=== PATIENT | female | born 1955 | race Caucasian/White ===

== ENCOUNTER 2017-06-24 10:06 | Outpatient (CLI) | payer OTHER | END 2017-06-24 10:07 | disposition home or self-care (01) | LOC: SC 10:06 | PROVIDERS: ATTEND Nurse Practitioner Family | DX: G47.33 Obstructive sleep apnea (adult) (pediatric) (principal) | CPT/HCPCS: 99212; 99214 ==

== ENCOUNTER 2019-09-27 15:57 | Outpatient (CLI) | payer OTHER ==
[2019-09-27 16:49] VITALS: BP 106/74
--- NOTE | 2019-09-27 16:49 | SLEEP CARE CONSULTATION ---
Information from patient questionnaire entered by Gia Dawson. I have reviewed and concur with the information entered by Gia Dawson. This document represents the service I personally performed and the decisions made by me, Mahogany Joyce, RN, MSN, HEMOTHERAPIST. History of Present Illness Previous diagnosis: Mild, Obstructive Sleep Apnea-Hypopnea Syndrome AHI: 7.4 Reason for follow up: annual (last seen 2017) Equipment type: CPAP Equipment obtained from: [facility] (having difficulty getting supplies and would like to transfer to [place]) Mask style: Nasal (Wisp but increase of rosea where it sits and affects hair style.) Mask brand: Respironics Backup mask available: No Last cushion change: 6 weeks ago CPAP Compliance Data - Data Reviewed with Patient Average duration of nightly device use: 6.2 Compliance rate %: 84.4 Current pressure setting (cmH2O): 5 Humidity settin Heated hose settin Average residual AHI: 1.2 Average large leak: 20 sec Subjective Missed days of use due to: reports: illness Patient concerns: reports: mask discomfort (rosea ), air blowing in eyes (vent air ), condensation in mask/hose (rare), dry mouth, nose, throat (rare when out of water), other (chronic sinus congestion - saw ENT 2 years for same symptom ). denies: mask leak noise, nasal congestion, epistaxis Observed to snore while using device: No Current pressure setting perceived as: comfortable On therapy, patient: reports: sleeping better, awakening more refreshed, being more awake and alert during the day, more rested overall. denies: drowsiness while driving Initial [place] Sleepiness Scale score: 11 Current [place] Sleepiness Scale score: 7 Allergies and Home Medications Known drug allergies: Yes (niacin) Home medication list reviewed: Yes Allergy and home medication list: ramipril 10mg daily levothyroxine 25mcg daily hydrochlorthiazide 25mg daily omeprazole 20mg daily Co Q10 daily magnesium 500mg daily calcium daily glucosamine daily metronidozole cream topically daily tumeric daily vitamin 2000 units daily vitamin 1000mg daily B12 daily ascorbic palmetate daily estrogen cream vaginally Review of Systems Review of systems same as previous: No (Shingles a year ago) Physical Exam Blood Pressure: 106/74 Cuff size: long Heart Rate: 96 O2 Saturation: 79 Height: 5 ft 6.5 in Weight: 190 lb Body Mass Index: 30.2 BMI Classification: Obesity Class 1 Impression and Plan 1. Obstructive Sleep Apnea-Hypopnea Syndrome, mild, with good treatment compliance and good apnea control. On CPAP therapy, the patient has better sleep quality and is more rested overall. For supply concerns she would like to transfer to [place]. I will have ultrasound coordinator check if insurance coverage at that [facility]. I will need to make DWO prescription. She would also like to tray a new mask style that works better with her hair. I showed her some mask styles. She would like to try the Dream wisp nasal mask. I will add the new mask style as shown to see if better for hair style and the vent is on top of head so will also reduce leaks into eyes. In addition, I gave her Pad A cheek pamphlet for cloth barriers that can be used to see if will reduce roscea irritation at mask site on face. Since she would like to lose 30 pounds, I showed her how her current weight places her as class 1 obesity. Weight loss will reduce her BMI to 26 over weight. I encouraged her to lose weight for overall health. In addition, I explained how significant weight loss could reduce her CPAP pressure requirements so I will adjust her 4-5 cmH20. Symptoms to report for further pressure adjustment discussed. If dryness symptoms become more frequent, she can adjust her humidity higher. Patient's apnea severity and rationale for treatment to reduce apnea, improve sleep quality and reduce cardiovascular and cerebrovascular events was reviewed. I also reviewed the benefit of consistent device use of CPAP for hypertension. since apnea more severe supine, she is advised to avoid supine sleep if unable to use CPAP. * Change auto CPAP pressure to 4- 5 cmH2O * Transfer to new [facility] * New mask fitting to try Dreamwisp * consider Pad a Cheek barriers * Notify me if snoring with mask or feeling that the pressure is too much or too little * Attempt to lose weight for over all health * Return for follow up in 1 year , or sooner if concerns arise I spent 100% of this 35 minute visit face to face with the patient with greater than 50% of this was spent time counseling the patient and coordination of care.
== END 2019-09-27 15:58 | disposition home or self-care (01) ==
LOC: SC 15:57
PROVIDERS: ATTEND Nurse Practitioner Family
DX: G47.33 Obstructive sleep apnea (adult) (pediatric) (principal); E66.9 Obesity, unspecified; Z68.30 Body mass index [BMI] 30.0-30.9, adult
CPT/HCPCS: 99212; 99214

== ENCOUNTER 2020-04-24 09:19 | Outpatient (CLI) | payer MEDICARE, BC ==
[2020-04-24 09:35] VITALS: BP 140/80
--- NOTE | 2020-04-24 09:35 | SLEEP CARE CONSULTATION ---
Information from patient questionnaire entered by Gia Dawson. I have reviewed and concur with the information entered by Gia Dawson. This document represents the service I personally performed and the decisions made by me, Mahogany Joyce, RN, MSN, [employer]. History of Present Illness Service Date and Time: 04/24/2020918 Previous diagnosis: Mild, Obstructive Sleep Apnea-Hypopnea Syndrome AHI: 7.4 (in 2014) Reason for follow up: other (7 month) Equipment type: CPAP Equipment obtained from: [employer] (in [place] / no supplies since transition to new Medicare insurance) Mask style: Nasal (Dreamwear) Backup mask available: Yes (old mask ) Last cushion change: about 3 months ago Prior sleep studies: Yes Year and Where: 2014 - [facility] Type of Sleep Study: Polysomnography CPAP Compliance Data - Data Reviewed with Patient Average duration of nightly device use: 6.75 Compliance rate %: 93.3 (180 days) Current pressure setting (cmH2O): 5 Humidity settin Heated hose setting: no heated hose given Average residual AHI: 1.5 Average large leak: 2 min 59 sec Subjective Patient concerns: reports: aerophagia (burping in the morning and occasional abdominal distention ), nasal congestion (pulls off mask in later morning a couple times a month due to nasal congestion. Uses Flonase if increased symptoms. ), dry mouth, nose, throat (mild dry mouth), other (mask dislodges about 1-2 times a week even after pulling hair through). denies: mask discomfort, air blowing in eyes, mask leak noise, condensation in mask/hose, epistaxis Observed to snore while using device: No Current pressure setting perceived as: comfortable On therapy, patient: reports: sleeping better, awakening more refreshed, being more awake and alert during the day, more rested overall, drowsiness while driving Initial [place] Sleepiness Scale score: 11 (in 2014) Allergies and Home Medications Home medication list reviewed: No (no changes ) Review of Systems Review of systems same as previous: Yes Physical Exam Blood Pressure: 140/80 Cuff size: long Heart Rate: 73 O2 Saturation: 98 Height: 5 ft 6.5 in Weight: 193 lb 12.8 oz (stable ) Body Mass Index: 30.8 BMI Classification: Obese Impression and Plan 1. Obstructive Sleep Apnea-Hypopnea Syndrome, mild, with good treatment compliance and good apnea control. On CPAP therapy, the patient has better sleep quality and is more rested overall. For aerophagina - I will lower CPAP pressure to 4cmH20. Patient to contact me if this is not resolved. I will also order a heated hose. Her heated hose was not replaced by new DME and she gets condensation in hose without heat in cooler weather. Nasal congestion can be reduced with increasing the CPAP humidity. The heated hose can be adjusted higher if condensation with higher humidity setting. Saline nasal spray can be also used prior to CPAP to clear nasal secretions and wash off any nasal allergens to facilitate nasal breathing. In addition, a steamy shower before bed will often assist nasal drainage. Her device is over 5 years old and is starting to turn off by itself while patient is using. In addition, it is hard to see humidity settings. Thus I will update CPAP device. Process discussed. She is advised it is her choice whether she wants a Respironics or ResMed device. To prevent mask dislodging during sleep, I will order the new headgear adaptor for Dreamwear nasal mask. Patient's apnea severity and rationale for treatment to reduce apnea, improve sleep quality and reduce cardiovascular and cerebrovascular events was reviewed. * * Changeauto CPAP pressure to 4 cmH2O * Update CPAP - patient choice * head gearadaptor * Notify me if snoring with mask or feeling that the pressure is too much or too little * Attempt to lose weight * consider diet consultation * Call this office if any problems using CPAP * Return for follow up in after new device , or sooner if concerns arise Time Spent with Patient (minutes): 30
== END 2020-04-24 09:20 | disposition home or self-care (01) ==
LOC: SC 09:19
PROVIDERS: ATTEND Nurse Practitioner Family
DX: G47.33 Obstructive sleep apnea (adult) (pediatric) (principal); E66.9 Obesity, unspecified; Z68.30 Body mass index [BMI] 30.0-30.9, adult
CPT/HCPCS: 99214; G0463; 99212

== ENCOUNTER 2021-07-26 08:06 | Outpatient (CLI) | payer MEDICARE, BC ==
--- NOTE | 2021-07-26 08:36 | SLEEP CARE CONSULTATION ---
Information from patient questionnaire entered by Gia Dawson. I have reviewed and concur with the information entered by Gia Dawson. This document represents the service I personally performed and the decisions made by , Yuni Donnelly ARNP. History of Present Illness Service Date and Time: 07/26/2021 0806 Previous diagnosis: Mild, Obstructive Sleep Apnea-Hypopnea Syndrome AHI: 7.4 (in 2014) Reason for follow up: annual (last seen 06/2020) Equipment type: CPAP Equipment obtained from: [facility] (getting supplies as needed) Mask style: Nasal Backup mask available: Yes (old mask) Last cushion change: 1-2 weeks ago Prior sleep studies: Yes Year and Where: 2014 - [facility] Type of Sleep Study: Polysomnography HPI additional information: MARITZA SMITH was diagnosed to have mild, AHI 7.4, obstructive sleep apnea-hypopnea syndrome and returned today for CPAP therapy annual follow-up. CPAP Compliance Data - Data Reviewed with Patient Average duration of nightly device use: 6 hr 53 min Compliance rate %: 87.2 (180 days) Current pressure setting (cmH2O): 4 Humidity settin Heated hose settin Average residual AHI: 4.1 Average large leak: 5 min 10 sec Subjective Missed days of use due to: reports: travel Patient concerns: denies: aerophagia, mask discomfort, air blowing in eyes, mask leak noise, condensation in mask/hose, nasal congestion, dry mouth, nose, throat, epistaxis, other Observed to snore while using device: No Current pressure setting perceived as: comfortable On therapy, patient: reports: sleeping better, awakening more refreshed, being more awake and alert during the day, more rested overall. denies: drowsiness while driving Initial [place] Sleepiness Scale score: 11 (in 2013) Current [place] Sleepiness Scale score: 6 Allergies and Home Medications Home medication list reviewed: Yes (no changes) Review of Systems Review of systems same as previous: No (surgery rotator cuff/bicep repair in November) Physical Exam Heart Rate: 66 O2 Saturation: 98 Height: 5 ft 6.5 in Weight: 192 lb Body Mass Index: 30.5 BMI Classification: Obese Impression and Plan 1. Obstructive Sleep Apnea-Hypopnea Syndrome, mild, with good treatment compliance and good apnea control. On CPAP therapy, the patient has better sleep quality and is more rested overall. Patient has previously been very satisfied with her CPAP therapy. She has not been using it as much since she heard about the recall on her device. She has a fairly new device, about a year. Patient has already registered their device for the recall. Patient denies any black particles seen in machine or hoses, any unusual odors coming from device. Patient has not experienced any physical symptoms such as upper airway irritation, headache, skin or eye irritation, asthma, nausea/vomiting, difficulty breathing or chest pain. Patient informed that they may use an inline CPAP filter that they can obtain online to reduce chance of any particles being inhaled or ingested. We discussed thoroughly the health risks of not using the CPAP versus continuing use with the filter in place. If patient is not able to sleep due to waking up choking, gasping for air or other respiratory distress that they may decide to continue using it until it is either replaced or repaired. Patient voiced understanding and agreement with plan. Patient's apnea severity and rationale for treatment to reduce apnea, improve sleep quality and reduce cardiovascular and cerebrovascular events was reviewed. I also reviewed the benefit of consistent device use of CPAP for hypertension and gastric reflux. Patient has been more sedentary due to an injury in November when she fell and damaged her her left rotator cuff as well as biceps muscle. She also broke something in her right hand. She had surgery and only in the last few weeks has been given clearance to carry/lift 4 pounds. Because of that she has not been able to exercise much. Patient was encouraged to lose weight for their overall health and to reduce apneas. She voiced understanding. * Continue auto CPAP pressure at 4 cmH2O * Notify me if snoring with mask or feeling that the pressure is too much or too little * Attempt to lose weight * Call this office if any problems using CPAP * Return for follow up in 1 year, or sooner if concerns arise Counseling Topics: Spare mask, Weight loss health impact Visit Type: In Office Time Spent with Patient (minutes): 20 Provider Statement: I spent 100% of the Face to Face Visit with the patient with greater than 50% spent counseling the patient and coordination of care.
== END 2021-07-26 08:07 | disposition home or self-care (01) ==
LOC: SC 08:06
PROVIDERS: ATTEND Nurse Practitioner Family
DX: G47.33 Obstructive sleep apnea (adult) (pediatric) (principal); E66.9 Obesity, unspecified; Z68.30 Body mass index [BMI] 30.0-30.9, adult
CPT/HCPCS: 99213; G0463; 99212

== ENCOUNTER 2021-09-25 10:03 | Outpatient (CLI) | payer MEDICARE, BC ==
--- NOTE | 2021-09-25 22:05 | XRAY Report ---
PROCEDURE: Foot 3 View RT INDICATIONS: PAIN EDEMA 1ST MP JOINT RIGHT FOOT TECHNIQUE: 3 views of the foot were acquired. COMPARISON: None FINDINGS: The distal first phalanx is foreshortened and abnormal in appearance, suggestive of a remote fracture or trauma. Moderate osteophytic changes in the first MTP with joint space narrowing, marginal osteophytosis, and subchondral sclerosis. No significant degenerative changes otherwise. IMPRESSION: Moderate first MTP osteoarthritis. Suspected remote traumatic deformity of the distal first phalanx. Reviewed by: Naun Schuster MD on 09/25/2021 10:04 PM [facility] Approved by: Naun Schuster MD on 09/25/2021 10:04 PM [facility] Station ID: [id number]
== END 2021-09-25 10:04 | disposition home or self-care (01) ==
LOC: DI.S 10:03
PROVIDERS: ATTEND Podiatrist
DX: M19.071 Primary osteoarthritis, right ankle and foot (principal)

== ENCOUNTER 2022-09-16 13:40 | Outpatient (CLI) | payer MEDICARE, BC ==
[2022-09-16 14:25] VITALS: BP 120/64
--- NOTE | 2022-09-16 14:25 | SLEEP CARE CONSULTATION ---
Information from patient questionnaire entered by Cynthia Bunch. I have reviewed and concur with the information entered by Cynthia Bunch. This document represents the service I personally performed and the decisions made by me, Lam Bauman MD, [facility]. History of Present Illness Service Date and Time: 09/16/2022 1340 Previous diagnosis: Mild, Obstructive Sleep Apnea-Hypopnea Syndrome AHI: 7.4 (in 2014) Reason for follow up: annual (LAST SEEN 07/2021) Equipment type: CPAP (DREAM STATION) Equipment obtained from: [employer] (getting supplies as needed) Mask style: Nasal Prior sleep studies: Yes Year and Where: 2014 - [facility] Type of Sleep Study: Polysomnography HPI additional information: Mrs. Aguayo returned today with her for follow up of nasal CPAP therapy. She was diagnosed to have mild obstructive sleep apnea-hypopnea syndrome. The patient went to [place] for the equipment and was fitted with a Respironics DreamWear nasal cushion mask. She reports using the Tony Respironics DreamStation autoCPAP device nightly and all through the night. The compliance report shows usage in 30 nights out of the past 30 nights, averaging 7.9 hours a night. She complained of no particular problem with the device such as soreness on the face, dry nose, epistaxis, nasal congestion or headache. She thinks that the pressure of 4 cmH2O is comfortable. On the CPAP therapy she notices improvement in her sleep quality, and that she wakes up feeling fresher in the morning and more awake/alert during the day. The [place] Sleepiness Scale score 4. Her notices no snore at all. The average residual AHI is 2.7: and average time in large leak per day is 13 minutes. Sleep Study - Results Type of Sleep Study: Polysomnography Prior sleep studies: Yes Year and Where: 2014 - [facility] CPAP Compliance Data - Data Reviewed with Patient Average duration of nightly device use: 7hrs, 55min, 39sec Compliance rate %: 100 (08/17/22-09/15/22) Current pressure setting (cmH2O): 4 Average residual AHI: 2.7 Subjective Initial [place] Sleepiness Scale score: 11 (in 2013) Allergies and Home Medications Drug allergies reviewed: Yes Home medication list reviewed: Yes Review of Systems Review of systems same as previous: Yes Physical Exam Vital signs obtained and entered by: CYNTHIA Ayala MA Blood Pressure: 120/64 (left arm ) Cuff size: regular Heart Rate: 89 O2 Saturation: 96 Height: 5 ft 6.5 in Weight: 188 lb 9.6 oz Body Mass Index: 29.9 BMI Classification: Overweight Impression and Plan IMPRESSION: 1. Obstructive Sleep Apnea-Hypopnea Syndrome, mild (AHI was 7.4 in 2014) with the patient doing well on nasal CPAP therapy. She has excellent compliance and significant clinical improvement. The current pressure appears effective and comfortable. Overall, she is very satisfied with treatment and plans to continue with it long-term. No adjustment is necessary today. PLAN: 1. Continue with nasal CPAP therapy with 4 cmH2O. 2. Try to lose weight 3. Consider trying nasal pillows if experience air leak into eyes. 4. Return in one year for follow up or earlier if there is any problem with the treatment Prescriptions: Device supplies Follow up with Sleep Care in: 1 year Visit Type: In Office Other Participants: Spouse/Significant Other Time Spent with Patient (minutes): 15 Provider Statement: I spent 100% of the Face to Face Visit with the patient with greater than 50% spent counseling the patient and coordination of care.
== END 2022-09-16 13:41 | disposition home or self-care (01) ==
LOC: SC 13:40
PROVIDERS: ATTEND Internal Medicine Pulmonary Disease
DX: G47.33 Obstructive sleep apnea (adult) (pediatric) (principal); E66.3 Overweight; Z68.29 Body mass index [BMI] 29.0-29.9, adult
CPT/HCPCS: 99212; G0463

== ENCOUNTER 2023-05-18 15:44 | Emergency (ER) | payer MEDICARE, BC ==
[2023-05-18 15:58] VITALS: BP 123/73
[2023-05-18] MEDS: lidocaine 1% 20 ML MDV SUBQ ONE (16:43)
--- NOTE | 2023-05-18 17:19 | ED Physician Documentation ---
PD HPI UPPER EXT INJURY - Stated complaint Stated Complaint: RT FINGER LAC - Chief complaint Chief Complaint: Laceration - History obtained from History obtained from: Patient - Additonal information Additional information: The patient comes to the emergency department chief complaint of right index finger laceration. She states she was washing a sharp knife when it slipped and lacerated her finger. She denies any movement deficit. No other complaints at this time. She states she is up-to-date on tetanus. PD PAST MEDICAL HISTORY - Past Medical History Past Medical History: Yes Cardiovascular: Hypertension Respiratory: Sleep apnea, CPAP use Neuro: None Endocrine/Autoimmune: HyPOthyroidism GI: None SUPPORT MANAGER: Breast cancer : None HEENT: None Psych: None Musculoskeletal: None Derm: None - Past Surgical History Past Surgical History: Yes General: Cholecystectomy Ortho: Rotator cuff repair, Shoulder arthroplasty /SUPPORT MANAGER: Other - Present Medications Home Medications: Ambulatory Orders Medication Instructions Recorded Confirmed Levothyroxine Sodium [Synthroid] 25 mcg ORAL DAILY 05/18/23 05/18/23 Ramipril [Altace] 10 mg PO DAILY 05/18/23 05/18/23 - Allergies Allergies/Adverse Reactions: Allergies Allergy/AdvReac Type Severity Reaction Status Date / Time NSAIDS (Non-Steroidal AdvReac Nausea Verified 05/18/23 15:55 Anti-Inflamma - Social History Does the pt smoke?: No Smoking Status: Never smoker Does the pt drink ETOH?: Yes Does the pt have substance abuse?: No - Immunizations Immunizations are current?: No Immunizations: TDAP >10years/unknown PD ED PE NORMAL - Vitals Vital signs reviewed: Yes - General General: Alert and oriented X 3, No acute distress, Well developed/nourished - HEENT HEENT: Atraumatic, PERRL, EOMI, Moist mucous membranes - Neck Neck: Supple, no meningeal sign - Cardiac Cardiac: Strong equal pulses - Respiratory Respiratory: No respiratory distress - Derm Derm: Warm and dry, Other (2.5 cm laceration to the ulnar aspect of right index finger at the distal proximal phalanx. No foreign body or tendon and floor of wound. Wound does not overlie joint.) - Extremities Extremities: No deformity, Other (Full range of motion right index finger to flexion and extension.) - Neuro Neuro: Alert and oriented X 3 - Psych Psych: Normal mood, Normal affect Results - Vitals Vitals: Vital Signs - 24 hr 05/18/23 15:55 Temperature 36.5 C Heart Rate 67 Respiratory 16 Rate Blood Pressure 123/73 O2 Saturation 96 Oxygen O2 Source Room air Procedures - Laceration (location) Right index finger Length in cm: 2.5 Wound type: Linear Neurovascular status: Sensory intact, Motor intact, Vascular intact Tendon involvement: Tendon intact Anesthesia: Lidocaine 1% Wound preparation: Hibiclens, Wound explored, To the base Skin layer closure: Nylon, Interrupted, Size #-0 - enter number (5.0), Sutures - enter # (5) Other: Patient tolerated well, No complications, Neurovascular intact, Dressing applied, Tetanus UTD PD Medical Decision Making - ED course Complexity details: reviewed results, re-evaluated patient, considered differential, d/w patient ED course: Patient's laceration was repaired as above. We have discussed wound care at home and the usual indications for return. We have also discussed the timeline for suture removal. Departure - Departure Disposition: 01 Home, Self Care Clinical Impression: Laceration Condition: Stable Instructions: ED Laceration Ext Sutr Stap Tape Comments: Your wound has been repaired with 5 synthetic sutures today. These will need to be removed in 7 days by medical professional at which time your wound will also be rechecked. The wound has been repaired sterilely and is not expected to get infected. However, to minimize the chances of infection you should avoid rubbing, scrubbing, or immersing the wound until the sutures are removed. You may let water and soap run over the wound, however. If you begin to notice redness and swelling spreading progressively away from the wound, or if the wound was formerly dry and scabbed and begins to become "mushy" and exhibit drainage, you will need to have it rechecked. You may apply an antibiotic ointment if you wish, such as Neosporin. You may also keep the wound covered with a Band-Aid, though once the wound scabs, it may be best to leave it open to air.
[2023-05-18] MEDS: BACITRACIN ZINC OINT 1 PACKET TOP ONE (17:31)
== END 2023-05-18 17:33 | disposition home or self-care (01) ==
LOC: ED 15:44
DX: S61.210A Laceration without foreign body of right index finger without damage to nail, initial encounter (principal); W26.0XXA Contact with knife, initial encounter; I10 Essential (primary) hypertension; E03.9 Hypothyroidism, unspecified; Z79.899 Other long term (current) drug therapy
CPT/HCPCS: 12001; 99282; A9270